=== PATIENT | female | born 1980 | race Caucasian/White ===

== ENCOUNTER 2021-05-29 13:25 | Outpatient (CLI) | payer OTHER, SELFPAY ==
--- NOTE | 2021-05-29 14:24 | ECG_ITS ---
Measurements Intervals Banning Rate: 65 P: 55 TN: 155 QRS: 66 QRSD: 80 T: 44 QT: 375 QTc: 390 Interpretive Statements SINUS RHYTHM BASELINE ARTIFACT NORMAL ECG NO PREVIOUS ECG AVAILABLE FOR COMPARISON Electronically Signed On 05-29-2021 17:31:18 CDT by Levy Hernandez M.D.
[2021-05-29 14:57] LABS: Anion Gap 3 mmol/L (8-16); Blood Urea Nitrogen 12 mg/dL (7-17); Calcium 9.1 mg/dL (8.4-10.2); Carbon Dioxide 28 mmol/L (22-30); Chloride 101 mmol/L (98-107); Estimated Glomerular Filt Rate > 60; Glucose 97 mg/dL (65-110); Potassium 4.6 mmol/L (3.4-5.0); Sodium 132 mmol/L (137-145)
== END 2021-05-29 13:26 | disposition home or self-care (01) ==
PROVIDERS: Anesthesiology; PCP Family Medicine Sports Medicine; Visit Provider Obstetrics & Gynecology
DX: Z01.818 Encounter for other preprocedural examination (principal); I10 Essential (primary) hypertension
CPT/HCPCS: 36415; 80048; 93005

== ENCOUNTER 2021-06-04 01:54 | Day surgery (SDC) | payer OTHER, SELFPAY ==
--- NOTE | 2021-05-26 15:09 | PC.NURSE ---
Report to the Outpatient Waiting Room, entrance under the green pavilion located off [facility], at time _0700_ on date __06/04/21 . SURGERY Time: __0900 . IF YOUR SURGERY TIME IS ADJUSTED WE WILL CALL YOU ON TUE. 06/03/21 - You and your visitor will be asked a series of questions to screen for COVID 19 for your protection. - A mask is required within the hospital. Preoperative COVID Testing Requirements: YOU ARE FULLY VACCINATED AND DO NOT REQUIRE TESTING No COVID Test needed if: (proof is required; if not received patient will have Rapid Test prior to entry) - Patient has received COVID Vaccine at least 14 days prior to procedure date or - Patient has positive COVID test result within last 90 days of surgery date. COVID Test needed if above criteria is not met If not COVID vaccinated a COVID test must be conducted within 72 hours of surgery and patient is asked to isolate self from time of testing until procedure. You will go to the [facility] Testing Site for your COVID testing. The [facility] site is located at the corner of [address] [facility]. You will only be called if COVID results are positive and your surgeon may reschedule your elective surgery date. Patients may have clear liquids (water, carbonated beverages, clear teas, apple juice) until 3 hours prior to surgery with a maximum of 20 ounces. - No food from midnight until time of surgery. YOU MAY HAVE CLEAR LIQUIDS UNTIL 0600 ON 06/04/21; THE MORNING OF YOUR SURGERY - Infants may have breast milk until 4 hours before surgery, formula 6 hours prior to surgery. - Children will be allowed to drink immediately following surgery. If applicable, please bring a bottle or sippy cup to assist with drinking. Juice, water, soda, and popsicles are readily available. For infants on formula, please bring formula the day of surgery. Pacifiers are allowed. Take the following medications with a SIP of water the morning of surgery: __METOPROLOL Medications to discontinue per physician N/A Date to take last dose N/A Please no make-up, nail uzbek, hairspray, perfume, deodorant, or body powder the day of surgery. No jewelry (including any body piercings) or valuables the day of surgery, leave them at home. Please take a shower or bath the night before, or the morning of, surgery with an antibacterial soap. Wear comfortable, loose fitting clothing. Children are encouraged to wear pajamas. - Jewelry must be removed prior to entering the operating room. Rings and piercings that are not removed may be cut off. - The hospital will not accept responsibility for valuables. - Please leave all valuables, including medications, at home the day of surgery. If you are going home after surgery, a licensed farm truck driver must drive you home. - NO public transportation without another adult. - We recommend that an adult stay with you for 24 hours following discharge. - We also recommend that you do not drive, make important decision, drink alcoholic beverages, or take any drugs that were not prescribed by your health care provider for at least 24 hours after your discharge time. For Pediatric surgeries, we recommend two adults accompany the child home (only one inside the building at this time). One visitor will be allowed to accompany the patient into the hospital. Patients visitor will be instructed to remain with patient at all times or leave the building. We will allow the visitor to come back to the postoperative area when patient is ready. Follow any additional instructions given to you from your surgeon. Telephone instructions given to IMELDA and asked if any additional questions and then verbalized understanding. Patient advised to call surgeon office or pre surgery nurse liaison [phone] if any additional questions.
--- NOTE | 2021-06-03 14:04 | PM.IMHP ---
H&P: HPI History of Present Illness Date/Time: 06/03/21 14:04 41-year-old 0 patient presents with menstrual cycles lasting 4-5 days to 3 days very heavy clotting cramping we have tried hormonal therapy in the past which has not helped her bleeding and she had side effects from the control. Ultrasound performed which showed no abnormalities. Multiple options were discussed and will be proceeding with endometrial ablation. Also desires permanent sterilization performed by bilateral salpingectomy. We have discussed permanence failure rate increased risk of ectopic and regret. Patient has good understanding and strongly desires to proceed Chief Complaint: menometrorrhagia Review of Systems Review of Systems: All systems reviewed & are unremarkable except as noted in HPI and below PMFSH Past Medical History Medical History History of hypertension Surgical History Surgical History H/O LEEP (12/29/10) LEEP - LGSIL SANTOS 1 History of gynecological procedure (11/26/10) COLP/BX - SQUAMOUS ATYPIA - SUGG. KOILOCYTOTIC ATYPIA History of tonsillectomy Family History Family History Father Hypertension Diabetes mellitus Mother Hypertension H/O ovarian cancer Grandparent H/O ovarian cancer maternal grandmother Cervical cancer maternal grandmother Other Breast cancer paternal aunt Social History Social History Smoking packs per day: 1 Smoking cigarettes per day: 20.0 Years smoked: 15 Smoking pack-years: 15.00 Smoking status: Former smoker Tobacco type: cigarettes Second hand tobacco smoke exposure: No Smoking end date: 04/27/15 Alcohol intake: current Drinks per week: 3 Substance use: never Substance use type: does not use Last use: 2014 Additional living arrangements comments: spouse Additional occupation/education comments: clean salon Gender identity (if verbalized by the patient): Female Sexual Orientation (if Verbalized by the Patient): Straight or Heterosexual Spiritual care concerns: No Meds Home Medications and Allergies Home Medications Medication Instructions Recorded Confirmed Type hydrochlorothiazide 12.5 mg capsule 12.5 mg PO DAILY 04/28/21 05/26/21 History metoprolol succinate 50 mg 50 mg PO BID 04/28/21 05/26/21 History tablet,extended release 24 hr Allergies Allergy/AdvReac Type Severity Reaction Status Date / Time Penicillins Allergy Unknown Hives / Verified 04/28/21 09:40 Red Face Exam Const: General: cooperative, healthy appearing and comfortable Resp: Effort & Inspection: normal respiratory effort Auscultation: clear to auscultation bilaterally Cardio: Rate: regular rate Rhythm: regular rhythm GI: Auscultation: normal bowel sounds : External Female Exam: normal external appearance Speculum Exam - Vagina: normal appearance of the vagina Speculum Exam - Cervix: normal appearance of the cervix Bimanual exam- vagina & uterus: normal bimanual exam Bimanual Exam- Adnexa, other: normal adnexae Assessment and Plan Assessment and plan (1) Menometrorrhagia: Code(s): N92.1 - Excessive and frequent menstruation with irregular cycle Status: Acute Assessment and Plan: hysteroscopy with D&C and endometrial ablation (2) Encounter for female sterilization procedure: Code(s): Z30.2 - Encounter for sterilization Status: Acute Assessment and Plan: laparoscopic bilateral salpingectomy
[2021-06-04] VITALS (10 sets, daily range): BP systolic 102–155; BP diastolic 69–91; PULSE 63–76; RESP 12–16; TEMP 36.4–36.8; O2SAT 97–100; BMI 20.8
--- NOTE | 2021-06-04 07:21 | WPDHPUPDATE1 ---
History and Physical Update Update Date/Time: 06/04/21 07:21 History and Physical has been reviewed, including an updated exam of the patient. There are NO changes in the patient's condition. Risks, benefits, and alternatives have been discussed and questions answered. Patient agrees to proceed with procedure.
--- NOTE | 2021-06-04 07:41 | WPDANESEPPF ---
Anes - Initial Pre Proc Eval Procedure: Operation Date: 06/04/21 09:00 Proposed Procedures p Hysteroscopy with Myosure, Flavia Endometrial Ablation, Laparoscopic Bilateral Salpingectomy - Maxim Woodruff MD Date/Time: 06/04/21 07:41 Surgeon: Maxim Woodruff MD Pre Op Diagnosis: Menometrorrhagia, Desire Steril Patient Data Age: 41 Gender: F Height: 1.63 m Weight: 55 kg Last Vital Signs Temp 36.8 C 06/04/21 07:33 Pulse 72 06/04/21 07:33 Resp 16 06/04/21 07:33 BP 155/91 H 06/04/21 07:33 Pulse Ox 100 06/04/21 07:33 Allergies Allergy/AdvReac Type Severity Reaction Status Date / Time Penicillins Allergy Unknown Hives / Verified 06/04/21 07:38 Red Face Home Medications Medication Instructions Recorded Confirmed Type hydrochlorothiazide 12.5 mg capsule 12.5 mg PO DAILY 04/28/21 06/04/21 History metoprolol succinate 50 mg 50 mg PO BID 04/28/21 06/04/21 History tablet,extended release 24 hr Patient hx anesthesia problems: none Family hx anesthesia problems: none Results Review: All pre-operative results and documents have been reviewed as part of the pre-operative evaluation. [facility] Past Medical History Medical History History of hypertension Surgical History Surgical History H/O LEEP (12/29/10) LEEP - LGSIL SANTOS 1 History of gynecological procedure (11/26/10) COLP/BX - SQUAMOUS ATYPIA - SUGG. KOILOCYTOTIC ATYPIA History of tonsillectomy Family History Family History Father Hypertension Diabetes mellitus Mother Hypertension H/O ovarian cancer Grandparent H/O ovarian cancer maternal grandmother Cervical cancer maternal grandmother Other Breast cancer paternal aunt Social History Social History Smoking packs per day: 1 Smoking cigarettes per day: 20.0 Years smoked: 15 Smoking pack-years: 15.00 Smoking status: Former smoker Tobacco type: cigarettes Second hand tobacco smoke exposure: No Smoking end date: 04/27/15 Alcohol intake: current Drinks per week: 3 Substance use: never Substance use type: does not use Last use: 2014 Living arrangements: with family Additional living arrangements comments: spouse Additional occupation/education comments: clean salon Gender identity (if verbalized by the patient): Female Sexual Orientation (if Verbalized by the Patient): Straight or Heterosexual Spiritual care concerns: No Anes - Eval Final PreProcedure Day of Procedure 06/04/21 07:41 Patient weight: normal Heart: regular rate and rhythm Lungs: clear to auscultation Airway: Mallampati scale class II Neurological: alert and oriented Last oral intake: >/= 8 hours ASA classification: II Emergent: no Anesthetic plan: proceed Anesthesia type and monitoring: general ETT and standard monitoring Results Review: All pre-operative results and documents have been reviewed as part of the pre-operative evaluation. Informed Consent: The patient's anesthetic plan and its attendant risks and benefits were discussed with the patient/family/POA. Questions were solicited and answers provided to the satisfaction of the patient/family/POA.
[2021-06-04] MEDS: LACTATED RINGERS 1,000 ML 30 ML IV CONT ×2 (07:49→09:24)
[2021-06-04] MEDS: ACETAMINOPHEN 500 MG TABLET 1000 MG PO (07:52)
[2021-06-04] MEDS: KETOROLAC 15 MG/ML VIAL (*BKC) IV PUSH (07:53)
[2021-06-04] MEDS: MIDAZOLAM HCL (*CRX) 2 MG/2 ML VIAL IV PUSH (07:54)
[2021-06-04] MEDS: SCOPOLAMINE 1.5 MG PATCH TRANSDERM (07:59)
--- NOTE | 2021-06-04 08:12 | SUR.PREOP ---
0750; DR BEVERLY SPEAKING TO PT. PT ANXIOUS. REQUESTING VERSED FOR PT. PT REQUESTING SCOPE PATCH.
[2021-06-04] MEDS: ceFAZolin 2 GM/D5W 50 ML 2 GM/50 ML BAG IVPB (08:34)
--- NOTE | 2021-06-04 09:18 | SUR.OPER ---
500ml ns in, 400ml ns out. aware
--- NOTE | 2021-06-04 09:19 | PM.OP ---
Procedure Note - Brief Procedure Note - Brief Date of procedure: 06/04/21 Pre-op diagnosis: Menometrorrhagia, Desire Steril Post-op diagnosis: Same Procedure performed: 1. Hysteroscopy 2. Uterine curettings 3. Endometrial ablation 4. Laparoscopic bilateral salpingectomy Description of procedure: Patient prepped use usual manner for this procedure. Cervical instruments were placed for uterine mobility during the case. Umbilical and lower quadrant incisions were made and placed under direct visualization. Using the Harmonic scalpel mesosalpinx bilaterally was cauterized and cut and the tubes were removed without difficulty through these trocars. There was no bleeding. Gas was allowed to escape incisions approximated using 4-0 Monocryl and skin glue. Attention was as placed to the vagina and the cervix was dilated to allow the hysteroscope to place which revealed thickened endometrial cavity. Curettings were obtained endometrial ablation instrument was placed and cavity assessment was performed. At the end of the procedure hysteroscopic exam revealed good destruction throughout. At this point seizure was considered terminated the patient was sent to recovery room in stable condition. Anesthesia: GETA Surgeon: Maxim Woodruff MD Estimated blood loss (mL): 10 Drains: No Packing: No Pathology: Yes Complications: No immediate complications Condition: Stable Disposition: PACU Findings: Laparoscopic evaluation showed no significant laparoscopic abnormalities and hysteroscopic evaluation revealed thickened tissue as noted above.
--- NOTE | 2021-06-04 10:39 | WPDHPUPDATE1 ---
History and Physical Update Update Date/Time: 06/04/21 10:39 In the postop area patient is found to have significant hematoma underneath the right lower quadrant incision. Does not appear to be expanding but is 7 8cm and tender. I have discussed with patient and will return to the operating room and irrigated this hematoma and we close the incision. A. Postoperative hematoma P. Proceed with re-exploration of incision and wound. Irrigation of hematoma. And hemostasis of any bleeding. History and Physical has been reviewed, including an updated exam of the patient. There are NO changes in the patient's condition. Risks, benefits, and alternatives have been discussed and questions answered. Patient agrees to proceed with procedure.
--- NOTE | 2021-06-04 10:41 | WPDHPUPDATE1 ---
History and Physical Update Update Date/Time: 06/04/21 10:41 See update placed on previous chart. Will returned OR for evacuation and hemostasis of postoperative hematoma. History and Physical has been reviewed, including an updated exam of the patient. There are NO changes in the patient's condition. Risks, benefits, and alternatives have been discussed and questions answered. Patient agrees to proceed with procedure.
--- NOTE | 2021-06-04 11:23 | PM.OP ---
Procedure Note - Brief Procedure Note - Brief Date of procedure: 06/04/21 Pre-op diagnosis: Postoperative hematoma Post-op diagnosis: Same Procedure performed: 1. Exploration of wound 2. Evacuation of hematoma 3. Hemostasis of bleeding Description of procedure: Patient was prepped and draped in usual manner for this procedure. Both lower trocar sites were opened with approximate 50cc of bright red blood and clot removed from either subcutaneous space. Irrigation was undertaken small oozing was noted in the subcutaneous vascular. This was rendered hemostatic with bipolar cautery as well as pressure. This was monitored for [id number] with no evidence of bleeding and no enlargement of any type of hematoma or subcutaneous mass. Having been satisfied that all bleeding had stopped 0 plain was used to close the subcutaneous ?? space and then a 4-0 Monocryl in a subcuticular layer to approximate the skin edges. This was done bilaterally. Patient again then monitored for [id number] with no evidence of any mass or accumulation of fluid beneath either incision. At this point the procedure was considered terminated and the patient was again sent to the recovery room. Findings and likely postoperative course and postoperative management of her wounds was discussed with her . We will place ice and pressure while she was here and have her continue with this for the next 24hours. He will call if there are any issues. Anesthesia: MAC Surgeon: Maxim Woodruff MD Estimated blood loss (mL): 100 Drains: No Packing: No Pathology: None sent Complications: No immediate complications Condition: Stable Disposition: PACU Findings: Approximate 50cc bilaterally of old blood and clot noted.
[2021-06-04] MEDS: oxyCODONE HCL (*CRX) 5 MG TAB IR PO (12:17)
--- NOTE | 2021-06-04 15:30 | SUR.PHASEII ---
RECIEVED PT FROM PACU AND GOT HER UP TO CHAIR. ONCE IN CHAIR, ABDOMEN WAS INSPECTED. I NOTICED RT LOWER ABDOMEN ON PALPATION HAD A BULGE AND WAS FIRM. NOTIFIED DR BEVERLY IMMEDIATELY AND HE CAME AND SAW PT. PT WAS SCHEDUALLED FOR AN I&D AND WENT TO OR WITHIN THE HALF HOUR.
--- NOTE | 2021-06-04 16:02 | SUR.PHASEII ---
PT DISCHARGED HOME WITH IN [facility].
--- NOTE | 2021-06-05 07:36 | SUR.OPER ---
forgot to alverto close time and out of room time.
== END 2021-06-04 12:40 | disposition home or self-care (01) ==
PROVIDERS: PCP Family Medicine Sports Medicine; Visit Provider Obstetrics & Gynecology
PROC: 0UDB8ZZ Extraction of Endometrium, Via Natural or Artificial Opening Endoscopic (ICD-10-PCS; CPT 58558; principal; 2021-06-04 09:00)
PROC: (CPT 58605; principal; 2021-06-04 10:30)
DX: Z30.2 Encounter for sterilization (principal); N85.8 Other specified noninflammatory disorders of uterus; N83.8 Other noninflammatory disorders of ovary, fallopian tube and broad ligament; N92.1 Excessive and frequent menstruation with irregular cycle; L76.32 Postprocedural hematoma of skin and subcutaneous tissue following other procedure; I10 Essential (primary) hypertension; Z87.891 Personal history of nicotine dependence; Y83.8 Other surgical procedures as the cause of abnormal reaction of the patient, or of later complication, without mention of misadventure at the time of the procedure
CPT/HCPCS: 58563; 58661; 10140; 36415; 80048; 88302; 88305; 93005; A9270; J0690; J1100; J1885; J2250; J2405; J2704; J2710; J3010; J7030; J7120

== ENCOUNTER 2022-01-23 12:54 | Emergency (ER) | payer OTHER, SELFPAY ==
--- NOTE | ~2022-01-23 | CT_ITS ---
EXAMINATION: CT abdomen pelvis w con DATE: 01/23/2022 14:06 INDICATION: Left flank pain and fever TECHNIQUE: Computed tomography (CT) of the abdomen and pelvis was performed with 100 CC Omnipaque 350 intravenous contrast. Automated exposure control and iterative reconstruction technique were employe d. Exam dose: 202.44 mGy-cm total exam DLP. COMPARISON: None. FINDINGS: Left lower lobe calcified pulmonary granuloma. The lung bases are clear of infiltrate or co nsolidation. Normal heart size. No pericardial or pleural effusion. The liver, gallbladder, bile ducts, spleen, pancreas, pancreatic duct, and adrenal glands are unremar kable. The right kidney appears normal. There is left nephromegaly with multiple areas of decreased contrast enhancement of the left renal pa renchyma, most prominent at the lower pole. The findings are most suggestive of left pyelonephritis. No urinary tract calculus or hydroureteronephrosis is detected. There is moderate diffuse thickening and urinary bladder wall. Cystitis is not excluded. Mild atherosclerotic calcification but normal caliber of the abdominal aorta and iliac arteries. No i ntraperitoneal or retroperitoneal or pelvic mass lesion or adenopathy or ascites is noted. There are small bowel and colon air-fluid levels without obstruction or bowel wall thickening, likely due to adynamic ileus or enterocolitis. No intraperitoneal free air. Small fat-containing umbilical hernia. Included skeletal structures are unremarkable. IMPRESSION: Left nephromegaly with patchy contrast enhancement, suggesting left pyelonephritis Moderate diffuse thickening of the urinary bladder wall, which may be due to cystitis Small and large bowel air-fluid levels, possibly due to adynamic ileus or enterocolitis Reviewed, dictated and finalized at [facility]. Reviewed, dictated and finalized at location [facility]. [facility] GENERAL IMPRESSION: Left nephromegaly with patchy contrast enhancement, suggesting lef t pyelonephritis Moderate diffuse thickening of the urinary bladder wall, which may be due to cy stitis Small and large bowel air-fluid levels, possibly due to adynamic ileus or enter ocolitis
[2022-01-23 12:59] VITALS: BP 141/88; PULSE 88; RESP 18; TEMP 36.7; O2SAT 100
--- NOTE | 2022-01-23 13:21 | ED.FEVER ---
HPI - Fever General Chief Complaint: Fever Stated Complaint: fever Time Seen by Provider: 01/23/22 13:06 History of Present Illness HPI Narrative: Patient is a 42-year-old female here for evaluation of fever and left flank pain. She states that over the past several days she has had intermittent spiking fevers up to 101 degrees. Fevers have improved but she has been taking Tylenol and ibuprofen [id number]. She also reports a pain in her left flank and also in her lower abdomen, which she states is at her endometrial ablation surgical site. She was seen in urgent care yesterday and was diagnosed with a kidney infection, was prescribed antibiotics but her fevers have persisted. Related Data Home Medications Medication Instructions Recorded Confirmed hydrochlorothiazide 12.5 mg capsule 12.5 mg PO DAILY 04/28/21 06/22/21 metoprolol succinate 50 mg 50 mg PO BID 04/28/21 06/22/21 tablet,extended release 24 hr Allergies Allergy/AdvReac Type Severity Reaction Status Date / Time Penicillins Allergy Unknown Hives / Verified 07/08/21 10:19 Red Face PMFSH Past Medical History Medical History History of hypertension Surgical History Surgical History H/O LEEP (12/29/10) LEEP - LGSIL SANTOS 1 History of gynecological procedure (11/26/10) COLP/BX - SQUAMOUS ATYPIA - SUGG. KOILOCYTOTIC ATYPIA History of gynecological procedure (06/04/21) hscope D&C/ Endometrial ablation/ bilateral Lscope salpingectomy History of tonsillectomy Family History Family History Father Hypertension Diabetes mellitus Mother Hypertension H/O ovarian cancer Grandparent H/O ovarian cancer maternal grandmother Cervical cancer maternal grandmother Other Breast cancer paternal aunt Social History Social History Smoking packs per day: 1 Smoking cigarettes per day: 20.0 Years smoked: 15 Smoking pack-years: 15.00 Smoking status: Former smoker Tobacco type: cigarettes Second hand tobacco smoke exposure: No Smoking end date: 04/27/15 Alcohol intake: current Drinks per week: 3 Substance use: never Substance use type: does not use Last use: 2014 Additional living arrangements comments: spouse Additional occupation/education comments: clean salon Gender identity (if verbalized by the patient): Female Sexual Orientation (if Verbalized by the Patient): Straight or Heterosexual Spiritual care concerns: No Course Vital Signs Vital signs: Vital Signs Temperature 98.1 F 01/23/22 12:59 Pulse Rate 88 01/23/22 12:59 Respiratory Rate 18 01/23/22 12:59 Blood Pressure 141/88 H 01/23/22 12:59 Pulse Oximetry 100 01/23/22 12:59 Oxygen Delivery Room Air 01/23/22 12:59 Temperature 98.1 F 01/23/22 12:59 Pulse Rate 88 01/23/22 12:59 Respiratory Rate 18 01/23/22 12:59 Blood Pressure 141/88 H 01/23/22 12:59 Pulse Oximetry 100 01/23/22 12:59 Oxygen Delivery Room Air 01/23/22 12:59 MDM - Fever MDM Narrative Medical decision making narrative: 42-year-old female here for evaluation of fevers and flank pain over the past several days, was seen at an urgent care and was given antibiotics for UTI without improvement of her symptoms. Patient is nontoxic-appearing and has normal vital signs here, afebrile. She has slight tenderness over her left flank. Urine with possible signs of infection. CT scan shows evidence of pyelonephritis and cystitis. Her white count is 10.3. She was given fluids and a dose of ceftriaxone in the ER. She was given Bactrim at the urgent care which I encouraged her to continue. She has no signs of urosepsis at this time and is stable for discharge. She was given return precautions and she voiced understandin
[2022-01-23 13:28] LABS: Basophils Absolute Auto 0.1 K/mm3 (0.0-0.1); Basophils Percent Auto 0.5 % (0.2-1.2); Hematocrit 36.9 % (37.0-47.0); Hemoglobin 12.8 g/dL (12.0-15.0); Immature Granulocyte Absolute 0.06 K/mm3 (0.00-0.031); Immature Granulocyte Percent A 0.6 % (0-0.5); Lymphocytes Absolute Auto 0.94 K/mm3 (0.9-3.2); Lymphocytes Percent Auto 9.2 % (18.3-44.2); Mean Corpuscular HGB Conc 34.7 g/dl (32-36); Mean Corpuscular Hemoglobin 33.9 pg (26-34); Mean Corpuscular Volume 97.6 fl (80-100); Mean Platelet Volume 8.9 fl (7.4-10.4); Monocytes Percent Auto 19.9 % (2.6-8.5); Neutrophils Absolute Auto 7.2 K/mm3 (1.3-6.7); Neutrophils Percent Auto 69.8 % (45.5-73.1); Platelet Count Result 256 k/mm3 (150-375); Red Blood Count 3.78 M/mm3 (4.2-5.4); Red Cell Distribution Width 11.7 % (11.5-14.5); White Blood Count 10.3 K/mm3 (4.5-10.0)
[2022-01-23 13:29] LABS: Appearance Urine Slightly Cloudy (Clear); Bilirubin Urine 1+ (Negative); Blood Urine Trace-intact (Negative); Color Urine Yellow (Yellow); Glucose Urine UA Negative (Negative); Ketones Urine 2+ mg/dL (Negative); Leukocyte Esterase Ur Trace LEU/UL (Negative); Nitrate Urine Negative (Negative); Protein Urine Negative (Negative); Urobilinogen Urine 0.2 mg/dL (<2.0)
[2022-01-23 13:35] LABS: Bacteria Urine Trace /hpf; Mucus Urine Rare /lpf; RBC Urine 0-2 /hpf (0-2); Squamous Epithelial Cell Urine Few /hpf (Few)
[2022-01-23 13:36] LABS: Add Urine Microscopic? YES
[2022-01-23 13:39] LABS: Alanine Aminotransferase 15 U/L (6-35); Albumin Level 4.1 g/dL (3.5-5.1); Alkaline Phosphatase 71 U/L (38-126); Anion Gap 11 mmol/L (8-16); Aspartate Amino Transferase 27 U/L (14-36); Bilirubin,Total 0.4 mg/dL (0.2-1.3); Blood Urea Nitrogen 6 mg/dL (7-17); Calcium 8.9 mg/dL (8.4-10.2); Carbon Dioxide 25 mmol/L (22-30); Chloride 96 mmol/L (98-107); Estimated CRCL calculation 78 ml/min; Estimated Glomerular Filt Rate > 60; Glucose 128 mg/dL (65-110); Potassium 3.5 mmol/L (3.4-5.0); Sodium 132 mmol/L (137-145)
[2022-01-23] MEDS: SODIUM CHLORIDE 0.9% IV 1,000 ML 999 ML IV CONT (13:43)
== END 2022-01-23 15:20 | disposition home or self-care (01) ==
PROVIDERS: Emergency Provider Physician Assistant; PCP Family Medicine Sports Medicine
DX: N12 Tubulo-interstitial nephritis, not specified as acute or chronic (principal); I10 Essential (primary) hypertension; Z87.891 Personal history of nicotine dependence
CPT/HCPCS: 36415; 74177; 80053; 81001; 81025; 85025; 87086; 96361; 96365; 99284; J0696; J7030; Q9967

== ENCOUNTER → 2022-07-21 13:37 | Outpatient (CLI) | payer OTHER, SELFPAY ==
--- NOTE | ~2022-07-21 | MM_ITS ---
EXAMINATION: MM screening mike BI w kortney HISTORY: Screening mammogram TECHNIQUE: Craniocaudal and mediolateral oblique 3-D tomosynthesis images were obtained and synthetic 2-D images were generated. CAD analysis was submitted and interpreted. COMPARISON: 07/12/2017 BREAST PARENCHYMAL COMPOSITION: The breasts are extremely dense, which lowers the sensitivity of mamm ography. FINDINGS: No suspicious mass, calcification, or architectural distortion are identified in either darrell ast to suggest malignancy. There has been no suspicious interval change. IMPRESSION: 1. No mammographic evidence of malignancy. 2. Recommend routine screening mammography in one year. BI-RADS Category 1: Negative Reviewed, dictated and finalized at location [facility].
== END ==
PROVIDERS: PCP Obstetrics & Gynecology; Visit Provider Obstetrics & Gynecology
DX: Z12.31 Encounter for screening mammogram for malignant neoplasm of breast (principal)
CPT/HCPCS: 77063; 77067

== ENCOUNTER 2023-08-19 14:42 | Outpatient (CLI) | payer BC, SELFPAY ==
--- NOTE | ~2023-08-19 | MM_ITS ---
EXAMINATION: MM screening mike BI w kortney HISTORY: Screening TECHNIQUE: Craniocaudal and mediolateral oblique 3-D tomosynthesis images were obtained and synthetic 2-D images were generated. CAD analysis was submitted and interpreted. COMPARISON: Comparison to multiple prior studies sequentially, with oldest reviewed study dated 07/12. BREAST PARENCHYMAL COMPOSITION: Dense: The breasts are extremely dense, which lowers the sensitivity of mammography. FINDINGS: There is no evidence of suspicious mass, calcification, or architectural distortion to sugg est malignancy in either breast. There has been no suspicious interval change. IMPRESSION: 1. No mammographic evidence of malignancy. 2. Recommend routine screening mammography in one year. BI-RADS Category 1: Negative Reviewed, dictated and finalized at location B.
== END 2023-08-19 14:43 ==
LOC: MICIMG 14:43
PROVIDERS: PCP Obstetrics & Gynecology; Visit Provider Obstetrics & Gynecology
DX: Z12.31 Encounter for screening mammogram for malignant neoplasm of breast (principal)
CPT/HCPCS: 77063; 77067

== ENCOUNTER 2024-08-07 15:51 | Observation (INO) | payer BC, SELFPAY ==
[2024-08-07] VITALS (12 sets, daily range): BP systolic 133–218; BP diastolic 82–124; PULSE 71–88; RESP 13–21; TEMP 36.6–36.9; O2SAT 100; BMI 20.6
--- NOTE | ~2024-08-07 | MR_ITS ---
EXAMINATION: MR brain/brain stem wo/w con DATE: 08/08/2024 09:06 INDICATION: Severe vertigo, headache and hyponatremia TECHNIQUE: Magnetic resonance imaging (MRI) of the brain and brainstem was performed without and with 11 mL ProHance intravenous contrast. Sequences included sagittal and axial T1-weighted SE, axial dif fusion-weighted FS SE, axial 3D SWAN, axial T2-weighted FLAIR, and axial T2-weighted FSE. Postcontras t axial and coronal T1-weighted SE was obtained. Apparent diffusion coefficient (ADC) maps were creat ed. COMPARISON: Head CT dated 08/07/2024 FINDINGS: There are no areas of restricted diffusion to suggest acute infarction. No intracranial hemorrhage or abnormal intracranial mass lesion. There are no intraparenchymal signal abnormalities seen on the ot her pulse sequences. The ventricles are symmetric and normal in size. There are no abnormal extra-axi al fluid collections. Flow voids are seen in the cerebral arteries on the T2-weighted sequences consi stent with their expected patency. Visualized orbits and soft tissues are unremarkable. There are no areas of abnormal enhancement on the post contrast images. IMPRESSION: 1. Normal brain MR. Reviewed, dictated and finalized at location A. IMPRESSION: 1. Normal brain MR.
--- NOTE | ~2024-08-07 | CT_ITS ---
EXAMINATION: CT brain wo con DATE: 08/07/2024 17:41 INDICATION: Headache TECHNIQUE: Computed tomography (CT) of the head was performed without intravenous contrast. Sagittal and coronal reconstructions were performed. The mA was adjusted according to patient size. Iterative reconstruction technique was employed. The dose-length product was 605.33 mGy-cm. COMPARISON: None FINDINGS: No acute intracranial hemorrhage, acute infarction or abnormal extra axial fluid collection. Ventricl es are normal and symmetric. No mass/mass effect. The orbits, paranasal sinuses and mastoid air cells are normal. IMPRESSION: 1. Normal head CT. Reviewed, dictated and finalized at location A. IMPRESSION: 1. Normal head CT.
[2024-08-07 16:10] LABS: BEDSIDEPREGUCG Negative (Negative)
[2024-08-07 16:16] LABS: Basophils Percent Auto 0.5 % (0.2-1.2); Eosinophils Percent Auto 0.1 % (0-4.4); Hematocrit 39.3 % (37.0-47.0); Hemoglobin 14.1 g/dL (12.0-15.0); Immature Granulocyte Absolute 0.03 K/mm3 (0.00-0.031); Immature Granulocyte Percent A 0.4 % (0-0.5); Lymphocytes Absolute Auto 2.01 K/mm3 (0.9-3.2); Lymphocytes Percent Auto 25.9 % (18.3-44.2); Mean Corpuscular HGB Conc 35.9 g/dl (32-36); Mean Corpuscular Hemoglobin 33.2 pg (26-34); Mean Corpuscular Volume 92.5 fl (80-100); Mean Platelet Volume 9.2 fl (7.4-10.4); Monocytes Absolute Auto 1.3 K/mm3 (0.1-0.6); Monocytes Percent Auto 16.7 % (2.6-8.5); Neutrophils Absolute Auto 4.4 K/mm3 (1.3-6.7); Neutrophils Percent Auto 56.4 % (45.5-73.1); Platelet Count Result 267 k/mm3 (150-375); Red Blood Count 4.25 M/mm3 (4.2-5.4); Red Cell Distribution Width 11.2 % (11.5-14.5); White Blood Count 7.8 K/mm3 (4.5-10.0)
[2024-08-07 16:21] LABS: Add Urine Microscopic? YES; Appearance Urine Clear (Clear); Bacteria Urine Rare /hpf; Bilirubin Urine Negative (Negative); Blood Urine Negative (Negative); Color Urine Yellow (Yellow); Glucose Urine UA Negative (Negative); Ketones Urine Negative (Negative); Leukocyte Esterase Ur 1+ LEU/UL (Negative); Nitrate Urine Negative (Negative); Non Pathogenic Casts 0-2; Protein Urine Negative (Negative); RBC Urine 0-2 /hpf (0-2); Specific Grav Ur 1.005 (1.001-1.035); Squamous Epithelial Cell Urine None Seen /hpf (Few); Urobilinogen Urine 0.2 mg/dL (<2.0)
[2024-08-07 16:31] LABS: Alanine Aminotransferase 22 U/L (6-35); Alkaline Phosphatase 87 U/L (38-126); Anion Gap 11 mmol/L (4-12); Aspartate Amino Transferase 41 U/L (14-36); Bilirubin,Total 0.8 mg/dL (0.2-1.3); Blood Urea Nitrogen 8 mg/dL (7-17); Calcium 9.7 mg/dL (8.4-10.2); Carbon Dioxide 23 mmol/L (22-30); Chloride 87 mmol/L (98-107); Estimated CRCL calculation 88 ml/min; Estimated Glomerular Filt Rate > 60; Glucose 103 mg/dL (65-110); Lipase 150 U/L (23-300); Sodium 121 mmol/L (137-145); Total Protein 8.9 g/dL (6.3-8.2)
[2024-08-07] MEDS: METOCLOPRAMIDE HCL INJ 10 MG/2 ML VIAL IV PUSH (17:24)
[2024-08-07] MEDS: diphenhydrAMINE HCl INJ 50 MG/ML VIAL 25 MG IV PUSH (17:24)
[2024-08-07] MEDS: SODIUM CHLORIDE 0.9% IV 1,000 ML 125 ML IV CONT (17:24)
--- NOTE | 2024-08-07 17:27 | ED.GENADULT ---
HPI - General Adult General Chief complaint: Nausea/Vomiting/Diarrhea Stated complaint: motion sickness Time Seen by Provider: 08/07/24 15:54 History of Present Illness HPI narrative: Eloina Dumont is a 44 y/o female who presents with a long hx of severe motion sickness, and hypertension. She states that her severe motion sickness has significantly been much worse over past 5 years that she has to use scopolamine patch and she travels. She states that last time that she was on vacation she used a full patch and when she took it off she had 5 days or severe nausea vomiting dizziness. Sinus them when they went on their vacation she just use half a patch and 1 day into her vacation with half a patch on she developed severe motion sickness and that being on the bed with severe nausea vomiting and diarrhea and feeling dizzy, this episode was 4 days ago on Tuesday night into Tuesday. She states Tuesday she felt a little bit better and they flew home. Yesterday she said that she felt somewhat better and today she could feel the symptoms coming back on again and she was trying to power through it then she called her PCP who had her check her blood pressure and it was elevated and they had her take a Dramamine at home at 2:00 p.m. and said if she continues to feel dizzy nauseous then she will need to go to the emergency department. She states she has been trying to take her b/p meds over the past several days through this but not sure what she has actually kept down. She denies numbness / no focal weakness Related Data Home Medications ?Medication ?Instructions ?Recorded ?Confirmed ?Last Taken ?Type hydrochlorothiazide 12.5 mg capsule 12.5 mg PO DAILY 04/28/21 07/09/24 06/03/21 History metoprolol succinate 50 mg 50 mg PO BID 04/28/21 07/09/24 06/04/21 05:15 History tablet,extended release 24 hr olmesartan 5 mg tablet 5 mg PO DAILY 07/09/24 07/09/24 Unknown History Allergies Allergy/AdvReac Type Severity Reaction Status Date / Time Penicillins Allergy Mild Hives / Verified 07/09/24 13:26 Red Face Review of Systems Review of Systems: All systems reviewed & are unremarkable except as noted in HPI and below PMFSH Past Medical History Medical History Screening mammogram, encounter for History of hypertension Surgical History Surgical History (Updated 07/09/24 @ 13:28 by CIARAN Olmos) History of right hip replacement (09/30/23) History of gynecological procedure (06/04/21) hscope D&C/ Endometrial ablation/ bilateral Lscope salpingectomy History of gynecological procedure (11/26/10) COLP/BX - SQUAMOUS ATYPIA - SUGG. KOILOCYTOTIC ATYPIA H/O LEEP (12/29/10) LEEP - LGSIL SANTOS 1 History of tonsillectomy Family History Family History Father Hypertension Diabetes mellitus Mother Hypertension H/O ovarian cancer Grandparent H/O ovarian cancer maternal grandmother Cervical cancer maternal grandmother Other Breast cancer paternal aunt Social History Social History Smoking packs per day: 1 Smoking cigarettes per day: 20.0 Years smoked: 15 Smoking pack-years: 15.00 Smoking status: Former smoker Tobacco type: cigarettes Second hand tobacco smoke exposure: No Smoking end date: 04/27/15 Alcohol intake: current Drinks per week: 3 Substance use: never Substance use type: does not use Last use: 2015 Do You Feel Safe in your Home?: Yes Lack of Transportation: No Lack of Food: Never True Current Housing: I Have Housing Concerned About Future Housing: No Difficulty Paying Gas/Electric Bills: No Difficulty Paying for Meds: No Currently Unemployed: No Education: High School Diploma/GED Difficulty w/ Childcare or Family Care: No Living arrangements: other Additional living arrangements comments: spouse Occupation/Education: occupation Additional occupation/education comments: self employed Gender identity (if verbalized by the patient): Female Sexual Orientation (if Verbalized by the Patient): Straight or Heterosexual Spiritual care concerns: No Exam Narrative: GENERAL: well-nourished HEAD: Normocephalic, atraumatic. EYES: PERRLA and EOMI. ENT: Nares clear, no rhinorrhea or epistaxis. Mucous membranes moist. Oropharynx without tonsillar hypertrophy exudate or other lesions. NECK: Supple. No adenopathy or masses. No carotid bruits or JVD CHEST: Clear to auscultation. No respiratory distress. No wheezes rales or rhonchi HEART: Regular rate and rhythm. No murmur heard. Normal peripheral pulses. ABDOMEN: Soft, nontender, nondistended, normal active bowel sounds. EXTREMITIES: Normal range of motion. No edema. SKIN: Warm, dry, no rash. NEURO: No focal deficits. Alert and oriented x3. PSYCH: Normal mood and affect. Course Vital Signs Vital signs: Vital Signs Temperature 36.6 C 08/07/24 15:58 Pulse Rate 86 08/07/24 15:58 Respiratory Rate 13 08/07/24 15:58 Blood Pressure 205/124 H 08/07/24 15:58 Pulse Oximetry 100 08/07/24 15:58 Oxygen Delivery Room Air 08/07/24 15:58 Temperature 36.6 C 08/07/24 15:58 Pulse Rate 81 08/07/24 16:15 Respiratory Rate 13 08/07/24 15:58 Blood Pressure 216/124 H 08/07/24 16:15 Pulse Oximetry 100 08/07/24 15:58 Oxygen Delivery Room Air 08/07/24 15:58 Medical Decision Making MDM Narrative Medical decision making narrative: 44-year-old female who presents with his ongoing motion sickness illness were she has been using the scopolamine patches. She states this most recent episode of her motion sickness episode started 4 days ago. She states she has been able to keep fluids and food down over the last couple days but she continued to have feeling as if for severe vertigo episode was going to come on so she called her primary doctor her blood pressure was elevated they told her to take a trauma being and then if it did help to go to the emergency department. On exam she is alert and oriented x4 pupils equal reactive EOM intact no nystagmus noted no focal deficits on exam she states based on severity of how her motion sickness can be she has about a 4/10 and states she has a mild headache with that. Concern for dehydration, vertigo, CBC-no leukocytosis, hemodynamically stable CMP-sodium 121, chloride 87, creatinine 0.60, AST 41 UA-positive for leukocytes home, white blood cells 6-10 Urine preg-negative TSH-pending Head CT-normal head CT Based on the lab results started normal saline at 125 an hour treating her with Reglan and Benadryl for her continued symptoms Patient re-evaluated and states that she is feeling a lot better her blood pressure has improved she still is slightly feeling like she will have an episode of the motion sickness but overall feeling better. Updated patient for plan to admit for her hyponatremia, she is agreeable to this plan Called Hospitalist Sánchez who accepts pt for observation admission and asks for urine sodium random Medical Records Medical records reviewed: Yes I reviewed the external patient's medical records. Vital Signs Vital Signs: Vital Signs Temperature 36.6 C 08/07/24 15:58 Pulse Rate 86 08/07/24 15:58 Respiratory Rate 13 08/07/24 15:58 Blood Pressure 205/124 H 08/07/24 15:58 Pulse Oximetry 100 08/07/24 15:58 Oxygen Delivery Room Air 08/07/24 15:58 Temperature 36.6 C 08/07/24 15:58 Pulse Rate 81 08/07/24 16:15 Respiratory Rate 13 08/07/24 15:58 Blood Pressure 216/124 H 08/07/24 16:15 Pulse Oximetry 100 08/07/24 15:58 Oxygen Delivery Room Air 08/07/24 15:58 vitals reviewed by me Lab Data Lab results reviewed: Yes I reviewed the patient's lab results. 08/07/24 16:05 08/07/24 16:05 Labs: Lab Results 08/07/24 08/07/24 Range/Units 16:05 16:08 WBC 7.8 (4.5-10.0) K/mm3 RBC 4.25 (4.2-5.4) M/mm3 Hgb 14.1 (12.0-15.0) g/dL Hct 39.3 (37.0-47.0) % MCV 92.5 (80-100) fl MCH 33.2 (26-34) pg MCHC 35.9 (32-36) g/dl RDW 11.2 L (11.5-14.5) % Plt Count 267 (150-375) k/mm3 MPV 9.2 (7.4-10.4) fl Immature Gran % (Auto) 0.4 (0-0.5) % Neut % (Auto) 56.4 (45.5-73.1) % Lymph % (Auto) 25.9 (18.3-44.2) % [place] % (Auto) 16.7 H (2.6-8.5) % Eos % (Auto) 0.1 (0-4.4) % Baso % (Auto) 0.5 (0.2-1.2) % Lymph # (Auto) 2.01 (0.9-3.2) K/mm3 [place] # (Auto) 1.3 H (0.1-0.6) K/mm3 Eos # (Auto) 0.0 (0-0.3) K/mm3 Baso # (Auto) 0.0 (0.0-0.1) K/mm3 Abs Immat Gran (auto) 0.03 (0.00-0.031) K/mm3 Absolute Neuts (auto) 4.4 (1.3-6.7) K/mm3 Absolute Nucleated RBC 0.000 (0.0-0.012) K/mm3 Nucleated RBC % 0.0 (0.0-0.2) % Sodium 121 L (137-145) mmol/L Potassium 4.0 (3.4-5.0) mmol/L Chloride 87 L (98-107) mmol/L Carbon Dioxide 23 (22-30) mmol/L Anion Gap 11 (4-12) mmol/L BUN 8 (7-17) mg/dL Creatinine 0.60 L (0.7-1.0) mg/dL Estim Creat Clear Calc 88 ml/min Estimated GFR > 60 (59 - ) Glucose 103 (65-110) mg/dL Calcium 9.7 (8.4-10.2) mg/dL Total Bilirubin 0.8 (0.2-1.3) mg/dL AST 41 H (14-36) U/L ALT 22 (6-35) U/L Alkaline Phosphatase 87 (38-126) U/L Total Protein 8.9 H (6.3-8.2) g/dL Albumin 5.0 (3.5-5.1) g/dL Lipase 150 (23-300) U/L Urine Color Yellow (Yellow) Urine Appearance Clear (Clear) Urine pH 7.0 (5.0-9.0) Ur Specific [place] 1.005 (1.001-1.035) Urine Protein Negative (Negative) mg/dL Urine Glucose (UA) Negative (Negative) mg/dL Urine Ketones Negative (Negative) mg/dL Ur Blood (Man) Negative (Negative) Urine Nitrate Negative (Negative) Urine Bilirubin Negative (Negative) Urine Urobilinogen 0.2 (<2.0) mg/dL Leukocyte Esterase Rfl 1+ H (Negative) SILVINO/UL Urine RBC 0-2 (0-2) /hpf Urine WBC 6-10 H (0-3) /hpf Ur Squamous Epith Cells None seen (Few) /hpf Urine Bacteria Rare /hpf Urine Casts 0-2 POC Urine HCG, Qual Negative (Negative) Imaging Data Radiologist's impression: Impressions Head CT 08/07/24 17:42 IMPRESSION: 1. Normal head CT. Discharge Plan Discharge Clinical Impression: Acute hyponatremia Nausea & vomiting Qualifiers: Vomiting type: unspecified Qualified Code(s): R11.2 - Nausea with vomiting, unspecified Patient Disposition: Still a Patient Condition: Stable Instructions: Antibiotic Form Patient Language: Citizen Of [place] Prescriptions: No Action olmesartan 5 mg tablet 5 mg PO DAILY metoprolol succinate 50 mg tablet extended release 24 hr 50 mg PO BID hydrochlorothiazide 12.5 mg capsule 12.5 mg PO DAILY Follow-up/Referrals: Terri,Miguel Clancy MD [Primary Care Provider] - Time of Disposition: 18:36
--- NOTE | 2024-08-07 18:43 | P.HP_ITS ---
H&P: HPI History of Present Illness Date/Time: 08/07/24 18:43 Chief Complaint: nausea, vomiting, dizziness, headache, hypertensive urgency, hyponatremia Narrative: This is a 44 year old female patient who is admitted to the hospital with hyponatremia after recurrent nausea, vomiting, dizziness/motion sickness and new frontal headache. Patient reports a long-standing history of motion sickness, particularly triggered by proximity to water, which has been a consistent trigger since childhood. She uses a scopolamine patch only during travel, typically without issue. In March, she wore the patch for 10 days during vacation and experienced significant withdrawal symptoms (nausea, vomiting, dizziness) for five days after removing it, which was unusual compared to previous experiences. In May, her physician advised halving the patch for future trips to ease withdrawal. On a trip this past weekend, she used half a patch but still developed severe symptoms, including dizziness, nausea, and vomiting, after brief exposure to water on Tuesday. She was ill and mostly bedridden during the trip in [place], with symptoms improving somewhat after returning home on Tuesday night, noting a sensation of her head and eyes not matching up. However, she continued to experience dizziness and headaches, with vomiting having ceased, but dizziness persisting, being minimal on Tuesday but still present on Tuesday morning (today) She also noted episodes of high blood pressure, initially 160/113 when she called her physician. Her physician advised taking Dramamine and calling back; after taking Dramamine, her blood pressure mikal to 180s/120s. Due to persistent symptoms and elevated blood pressure, her physician recommended ED evaluation for a bag of fluids and symptom control. She received antiemetics (Reglan and Benadryl) in the ED, which improved her nausea, but her dizziness and headaches persisted. Blood work revealed significant hyponatremia of 121. She takes hydrochlorothiazide, metoprolol tartrate 50 mg twice daily, and olmesartan 10 mg in the evening for hypertension. Hydrochlorothiazide is noted as a possible contributor to her low sodium. She has a history of high blood pre ssure, managed by Dr. Miguel Murray. She has been on her current regimen for years, except for olmesartan, which was added about a year ago. She denies frequent headaches and reports no current vomiting, only dizziness and headache. 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 Review of Systems Review of Systems: All systems reviewed & are unremarkable except as noted in HPI and below PMFSH Past Medical History Medical History Irregular menses PMDD (premenstrual dysphoric disorder) Menometrorrhagia Encounter for female sterilization procedure Screening mammogram, encounter for History of hypertension Surgical History Surgical History History of right hip replacement (09/30/23) History of gynecological procedure (06/04/21) hscope D&C/ Endometrial ablation/ bilateral Lscope salpingectomy History of gynecological procedure (11/26/10) COLP/BX - SQUAMOUS ATYPIA - SUGG. KOILOCYTOTIC ATYPIA H/O LEEP (12/29/10) LEEP - LGSIL SANTOS 1 History of tonsillectomy Family History Family History Father Hypertension Diabetes mellitus Mother Hypertension H/O ovarian cancer Grandparent H/O ovarian cancer maternal grandmother Cervical cancer maternal grandmother Other Breast cancer paternal aunt Social History Social History Smoking packs per day: 1 Smoking cigarettes per day: 20.0 Years smoked: 15 Smoking pack-years: 15.00 Smoking status: Never smoker Tobacco type: cigarettes Second hand tobacco smoke exposure: No Smoking end date: 04/27/15 Alcohol intake: current Drinks per week: 5 Substance use: never Substance use type: does not use Last use: 2015 Do You Feel Safe in your Home?: Yes Lack of Transportation: No Lack of Food: Never True Current Housing: I Have Housing Concerned About Future Housing: No Difficulty Paying Gas/Electric Bills: No Difficulty Paying for Meds: No Currently Unemployed: No Education: High School Diploma/GED Difficulty w/ Childcare or Family Care: No Living arrangements: other Additional living arrangements comments: spouse Occupation/Education: occupation Additional occupation/education comments: self employed Gender identity (if verbalized by the patient): Female Sexual Orientation (if Verbalized by the Patient): Straight or Heterosexual Spiritual care concerns: No Meds Home Medications and Allergies Home Medications ?Medication ?Instructions ?Recorded ?Confirmed ?Type hydrochlorothiazide 12.5 mg capsule 12.5 mg PO DAILY 04/28/21 08/07/24 History olmesartan 5 mg tablet 10 mg PO HS 07/09/24 08/07/24 History metoprolol tartrate 50 mg tablet 50 mg PO Q12H 08/07/24 08/07/24 History Allergies Allergy/AdvReac Type Severity Reaction Status Date / Time Penicillins Allergy Mild Hives / Verified 07/09/24 13:26 Red Face Vital Signs Vital Signs - 24 hr 08/07/24 15:58 08/07/24 16:02 08/07/24 16:09 Temperature 36.6 C Pulse Rate 86 81 78 Respiratory Rate 13 16 Blood Pressure 205/124 H 205/124 H 218/117 H Pulse Oximetry 100 100 Oxygen Delivery Room Air 08/07/24 16:12 08/07/24 16:12 08/07/24 16:14 Temperature Pulse Rate 72 81 80 Respiratory Rate 13 21 H Blood Pressure 211/120 H 218/117 H 211/120 H Pulse Oximetry 100 100 Oxygen Delivery 08/07/24 16:15 08/07/24 16:17 08/07/24 16:32 Temperature Pulse Rate 81 80 74 Respiratory Rate 17 16 Blood Pressure 216/124 H 216/124 H 183/117 H Pulse Oximetry 100 100 Oxygen Delivery 08/07/24 17:01 08/07/24 18:08 Temperature Pulse Rate 88 71 Respiratory Rate 17 13 Blood Pressure 182/124 H 133/91 H Pulse Oximetry 100 100 Oxygen Delivery Exam Narrative: GENERAL: Well-appearing, well-nourished, and in no acute distress. HEAD: Normocephalic, atraumatic. ENT:? Mucous membranes moist. CHEST: Clear to auscultation.? No respiratory distress. HEART: Regular rate and rhythm. ? Normal peripheral pulses. ABDOMEN: Soft, nontender, nondistended. EXTREMITIES: Normal range of motion. No peripheral edema. SKIN: Warm dry normal color NEURO: Alert and oriented x3. PSYCH: Normal mood and affect H&P: Results Labs Labs: Short CBC 08/07/24 Range/Units 16:05 WBC 7.8 (4.5-10.0) K/mm3 Hgb 14.1 (12.0-15.0) g/dL Hct 39.3 (37.0-47.0) % Plt Count 267 (150-375) k/mm3 BMP 08/07/24 16:05 Sodium 121 L Potassium 4.0 Chloride 87 L Carbon Dioxide 23 BUN 8 Creatinine 0.60 L Glucose 103 Calcium 9.7 Liver Function 08/07/24 Range/Units 16:05 Total Bilirubin 0.8 (0.2-1.3) mg/dL AST 41 H (14-36) U/L ALT 22 (6-35) U/L Alkaline Phosphatase 87 (38-126) U/L Albumin 5.0 (3.5-5.1) g/dL Urine 08/07/24 Range/Units 16:05 Urine Color Yellow (Yellow) Urine Appearance Clear (Clear) Urine pH 7.0 (5.0-9.0) Ur Specific [place] 1.005 (1.001-1.035) Urine Protein Negative (Negative) mg/dL Urine Glucose (UA) Negative (Negative) mg/dL Pulse Oximetry SpO2 results: 97-100% on room air Attestation: I personally reviewed and interpreted this pulse oximetry as follows: Interpretation: No need for supplemental oxygenation at this time Imaging CT scan - head: Radiologist's impression: EXAMINATION: CT brain wo con DATE: 08/07/2024 17:41 INDICATION: Headache TECHNIQUE: Computed tomography (CT) of the head was performed without intravenous contrast. Sagittal and coronal reconstructions were performed. The mA was adjusted according to patient size. Iterative reconstruction technique was employed. The dose-length product was 605.33 mGy-cm. COMPARISON: None FINDINGS: No acute intracranial hemorrhage, acute infarction or abnormal extra axial fluid collection. Ventricles are normal and symmetric. No mass/mass effect. The orbits, paranasal sinuses and mastoid air cells are normal. IMPRESSION: 1. Normal head CT. Reviewed, dictated and finalized at location A. Assessment and Plan Assessment and plan (1) Hypertensive urgency: Code(s): I16.0 - Hypertensive urgency Status: Acute Assessment and Plan: -Severely elevated blood pressure on arrival -History of HTN for years -Metoprolol, HCTZ and olmesartan prescribed at home -BP corrected in ER after Reglan/Benadryl given for nausea/vomiting/headache -Hold HCTZ due to severe hyponatremia -Consider increasing metoprolol or olmesartan dosing if further HTN treatment needed -Third agent to consider rather than HCTZ would be a calcium channel daryl -PRN hydralazine (2) Acute hyponatremia: Code(s): E87.1 - Hypo-osmolality and hyponatremia Status: Acute Assessment and Plan: -Sodium 121 today in ER -Likely related to dehydration from nausea/vomiting, severe dizziness, HCTZ, poor dietary intake r/t vomiting -Normal Saline at 125 mL/hr started in ER -Urine sodium sent from ER, result pending -Regular diet with nausea/vomiting control -Headache reported, no seizures or loss of consciousness -Discussed minimizing free water intake at this time -Discussed trying to manage fear/anxiety about hospital stay to prevent worsening of hyponatremia due to SIADH/adrenaline release -MRI of brain and brain stem ordered to rule out tumor causing symptom worsening and new headache (3) Nausea & vomiting: Qualifiers: Vomiting type: unspecified Qualified Code(s): R11.2 - Nausea with vomiting, unspecified Code(s): R11.2 - Nausea with vomiting, unspecified Status: Acute Assessment and Plan: -See above Quality VTE Prophylaxis VTE prophylaxis: mechanical ordered Hospitalist MIPS Advance Care Plan I have confirmed that the patient's Advanced Care Plan is present, code status is documented, or surrogate decision maker is listed in patient medical record.: Yes Medication Reconciliation I have utilized all available resources to obtain, update and review the patients current medications (includes all prescriptions, OTC, herbals, cannabis, and nutritional supplements).: Yes
[2024-08-07 19:06] LABS: Sodium Urine Random 33 meq/L
--- NOTE | 2024-08-07 19:41 | ADMGEN ---
This patient, Eloina Dumont, was admitted to 2 Medical Room 257-01. Patient/family oriented to hospital policies and general routines including ID bracelet, bed and alarms, visiting hours, pain management, procedures, bathroom and other care routines, personal items, smoking policy, room service/diet, and visiting hours. Information on how to activate the Rapid Response Team has been discussed. Patient/Family are encouraged to report perceived risks to care and to ask questions if they do not understand what they are told or what they should do.
[2024-08-07] MEDS: OLMESARTAN MEDOXOMIL 10 MG TABLET PO (22:56)
[2024-08-07] MEDS: METOPROLOL TARTRATE 50 MG TAB PO (22:56)
[2024-08-08] VITALS: BP 131/85; PULSE 63; RESP 18; TEMP 36.5; O2SAT 99
--- NOTE | 2024-08-08 | ECHO_ITS ---
Patient Info Name: Eloina Dumont Age: 44 years : 1980 Gender: Female Ht: 64 in Wt: 120 lbs BSA: 1.57 m2 HR: 63 bpm BP: 105 / 62 mmHg Heart Rhythm: Sinus Rhythm Technical Quality: Fair Exam Date: 08/08/2024 9:16 AM Patient Status: O Admit Date: 08/07/2024 Exam Type: CA echo doppler w bubble study Complete two-dimensional, color flow and Doppler transthoracic echocardiogram is performed with agitated saline. Staff Referring Physician: Juan Harris Acupressure Therapist: Faye Arce Attending Provider: Gloria Goldstein Contrast/Agitated Saline Contrast/Ag. Saline: Agitated Saline Amount: 16.00 ml Administered By: Patrick Arce MD Summary 1. Left ventricular chamber dimension is normal. 2. Left ventricular systolic function is normal, estimated at 60-65. 3. There is no increased left ventricular wall thickness. 4. The left ventricular diastolic function is normal. 5. Left atrial chamber dimension is mildly enlarged. 6. Intact interatrial septum visualized by color flow and agitated saline imaging. 7. There is mild mitral valve regurgitation. 8. There is mild tricuspid valve regurgitation. 9. There is mild pulmonic regurgitation. Left Ventricle Left ventricular chamber dimension is normal. Left ventricular systolic function is normal, estimated at 60-65. There is no increased left ventricular wall thickness. The left ventricular diastolic function is normal. Right Ventricle Right ventricular chamber dimension is normal. Right ventricular systolic function is normal. Left Atria Left atrial chamber dimension is mildly enlarged. Right Atria Right atrial chamber dimension is normal. Atrial Septum Intact interatrial septum visualized by color flow and agitated saline imaging. Aortic Valve The aortic valve is trileaflet. There is mild aortic valve sclerosis. There is no aortic valve stenosis. There is trace aortic valve regurgitation. Pulmonic Valve The pulmonic valve is normal. There is no pulmonic valve stenosis. There is mild pulmonic regurgitation. Mitral Valve The mitral valve has normal leaflets. There is no mitral valve stenosis. There is mild mitral valve regurgitation. Tricuspid Valve The tricuspid valve leaflets are normal. There is no significant tricuspid valve stenosis. There is mild tricuspid valve regurgitation. No pulmonary hypertension, estimated pulmonary arterial systolic pressure is 25 mmHg. Pericardium/Pleural The pericardium appears normal. There is no pericardial effusion. Inferior Vena Cava Normal inferior vena cava with >50% collapse upon inspiration consistent with normal right atrial pressure, 8 mmHg. Aorta The aortic root size at the sinus of Valsalva is normal. Left Ventricular Outflow Tract Name Value Normal LVOT 2D LVOT Diameter 1.8 cm LVOT Doppler LVOT Peak Velocity 74 cm/s LVOT Peak Gradient 2 mmHg LVOT Mean Gradient 1 mmHg LVOT VTI 17 cm LVOT VTI/AV VTI Ratio 0.7 LVOT Stroke Volume 43 ml LVOT CO 3.0 l/min LVOT CI 1.9 l/min/m2 Pulmonic Valve Name Value Normal PV Doppler PV Peak Velocity 84 cm/s PV Peak Gradient 3 mmHg Mitral Valve Name Value Normal MV Diastolic Function MV E Peak Velocity 84 cm/s MV A Peak Velocity 64 cm/s MV E/A 1.3 MV Decel Time (PW) 226 ms MV Annular TDI MV E/e' (Septal) 7.7 MV E/e' (Lateral) 7.3 MV E/e' (Average) 7.5 Tricuspid Valve Name Value Normal Estimated PAP/RSVP RA Pressure 8 mmHg <=5 PA Systolic Pressure 25 mmHg <36 TV Annular TDI TV Lateral Mery s' Velocity 13.3 cm/s >=9.5 Aortic Valve Name Value Normal AV Doppler AV Peak Velocity 107 cm/s AV Peak Gradient 5 mmHg AV Mean Gradient 3 mmHg AV VTI 23 cm AV Area (Cont Eq VTI) 1.8 cm2 >=3.0 AV Area (Cont Eq Cory) 1.7 cm2 AV DI (Cory) 0.69 AV Regurgitation 2D LVOT Area 2.5 cm2 Ventricles Name Value Normal LV Dimensions 2D/MM IVS Diastolic Thickness (2D) 0.7 cm 0.6-1.0 LVID Diastole (2D) 4.4 cm 3.8-5.2 LVIW Diastolic Thickness (2D) 0.6 cm 0.6-0.9 LVID Systole (2D) 2.9 cm 2.2-3.5 LVOT Diameter 1.8 cm LV Mass (2D Cubed) 78.71 g 67.00-162.00 LV Mass Index (2D Cubed) 50 g/m2 43-95 Relative Wall Thickness (2D) 0.26 <=0.42 LV Fractional Shortening/Ejection Fraction 2D/MM LV Fractional Shortening (2D) 33 % 27-45 LV EF (2D Teichholz) 62 % LV Diastolic Volume (4C MOD) 66 ml LV EF (4C MOD) 59 % LV Diastolic Volume (2C MOD) 66 ml LV EF (2C MOD) 68 % LV Diastolic Volume (BP MOD) 67 ml 46-106 LV Diastolic Volume Index (BP MOD) 43 ml/m2 29-61 LV Systolic Volume (BP MOD) 24 ml 14-42 LV Systolic Volume Index (BP MOD) 16 ml/m2 8-24 LV EF (BP MOD) 63 % 54-74 LV Diastolic Length (4C) 7.0 cm LV Systolic Length (4C) 5.4 cm LV Stroke Volume (4C MOD) 39 ml Atria Name Value Normal LA Dimensions LA Volume (4C A-L) 20 ml LA Volume (BP A-L) 22 ml RA Dimensions RA Systolic [place] Length (4C) 3.3 cm 2.2-2.8 RA Area (4C) 6.2 cm2 <=18.0 Report Signatures
[2024-08-08] MEDS: SODIUM CHLORIDE 0.9% IV 1,000 ML 125 ML IV CONT ×2 (01:14→10:07)
[2024-08-08 01:42] LABS: Total Triiodothyronine (T3) 1.04 NG/ML (0.82-1.58)
[2024-08-08 04:00] VITALS: BP 96/56; PULSE 66; RESP 18; TEMP 36.5; O2SAT 100
[2024-08-08 04:48] LABS: Basophils Percent Auto 0.7 % (0.2-1.2); Eosinophils Percent Auto 0.5 % (0-4.4); Hematocrit 36.7 % (37.0-47.0); Hemoglobin 12.9 g/dL (12.0-15.0); Immature Granulocyte Absolute 0.02 K/mm3 (0.00-0.031); Immature Granulocyte Percent A 0.4 % (0-0.5); Lymphocytes Absolute Auto 2.05 K/mm3 (0.9-3.2); Lymphocytes Percent Auto 36.8 % (18.3-44.2); Mean Corpuscular HGB Conc 35.1 g/dl (32-36); Mean Corpuscular Hemoglobin 32.7 pg (26-34); Mean Corpuscular Volume 93.1 fl (80-100); Mean Platelet Volume 9.2 fl (7.4-10.4); Monocytes Absolute Auto 0.9 K/mm3 (0.1-0.6); Monocytes Percent Auto 16.5 % (2.6-8.5); Neutrophils Absolute Auto 2.5 K/mm3 (1.3-6.7); Neutrophils Percent Auto 45.1 % (45.5-73.1); Platelet Count Result 205 k/mm3 (150-375); Red Blood Count 3.94 M/mm3 (4.2-5.4); Red Cell Distribution Width 10.9 % (11.5-14.5); White Blood Count 5.6 K/mm3 (4.5-10.0)
[2024-08-08 05:21] LABS: Alanine Aminotransferase 17 U/L (6-35); Albumin Level 4.3 g/dL (3.5-5.1); Alkaline Phosphatase 66 U/L (38-126); Anion Gap 9 mmol/L (4-12); Aspartate Amino Transferase 39 U/L (14-36); Bilirubin,Total 0.8 mg/dL (0.2-1.3); Blood Urea Nitrogen 5 mg/dL (7-17); Calcium 9.2 mg/dL (8.4-10.2); Carbon Dioxide 24 mmol/L (22-30); Chloride 98 mmol/L (98-107); Estimated CRCL calculation 88 ml/min; Estimated Glomerular Filt Rate > 60; Glucose 93 mg/dL (65-110); Potassium 3.5 mmol/L (3.4-5.0); Sodium 131 mmol/L (137-145); Total Protein 7.7 g/dL (6.3-8.2)
[2024-08-08 06:00] VITALS: BP 105/62; PULSE 63; RESP 18; TEMP 36.6; O2SAT 100
[2024-08-08 08:00] VITALS: BP 104/66; PULSE 62; RESP 17; TEMP 36.5; O2SAT 100
--- NOTE | 2024-08-08 09:24 | P.PNIM_ITS ---
Progress Note: A&P Assessment and Plan (1) Hypertensive urgency: Code(s): I16.0 - Hypertensive urgency Status: Acute Assessment and Plan: -Severely elevated blood pressure on arrival -History of HTN for years -Metoprolol, HCTZ and olmesartan prescribed at home -BP corrected in ER after Reglan/Benadryl given for nausea/vomiting/headache -Hold HCTZ due to severe hyponatremia -Consider increasing metoprolol or olmesartan dosing if further HTN treatment needed -Third agent to consider rather than HCTZ would be a calcium channel daryl -PRN hydralazine (2) Acute hyponatremia: Code(s): E87.1 - Hypo-osmolality and hyponatremia Status: Acute Assessment and Plan: -Sodium 121 today in ER -->08/08 AM labs: 131 -Likely related to dehydration from nausea/vomiting, severe dizziness, HCTZ, poor dietary intake r/t vomiting -Normal Saline at 125 mL/hr started in ER -Urine sodium sent from ER, results unremarkable -Regular diet with nausea/vomiting control -Headache reported, no seizures or loss of consciousness -Discussed minimizing free water intake at this time -Discussed trying to manage fear/anxiety about hospital stay to prevent worsening of hyponatremia due to SIADH/adrenaline release -MRI of brain and brain stem ordered to rule out tumor causing symptom worsening and new headache -->WDL (3) Nausea & vomiting: Qualifiers: Vomiting type: unspecified Qualified Code(s): R11.2 - Nausea with vomiting, unspecified Code(s): R11.2 - Nausea with vomiting, unspecified Status: Acute Assessment and Plan: -See above Subjective Date/time seen: 08/08/24 Interval history: Per ED provider: Concern for dehydration, vertigo, CBC-no leukocytosis, hemodynamically stable CMP-sodium 121, chloride 87, creatinine 0.60, AST 41 UA-positive for leukocytes, white blood cells 6-10 Urine preg-negative TSH- Elevated, but t4 & t3 WDL. Head CT-normal head CT Based on the lab results started normal saline at 125 an hour treating her with Reglan and Benadryl for her continued symptoms Patient re-evaluated and states that she is feeling a lot better her blood pressure has improved she still is slightly feeling like she will have an episode of the motion sickness but overall feeling better. Per intake hospitalist: This is a 44 year old female patient who is admitted to the hospital with hyponatremia after recurrent nausea, vomiting, dizziness/motion sickness and new frontal headache. Patient reports a long-standing history of motion sickness, particularly triggered by proximity to water, which has been a consistent trigger since childhood. She uses a scopolamine patch only during travel, typically without issue. In March, she wore the patch for 10 days during vacation and experienced significant withdrawal symptoms (nausea, vomiting, dizziness) for five days after removing it, which was unusual compared to previous experiences. In May, her physician advised halving the patch for future trips to ease withdrawal. On a trip this past weekend, she used half a patch but still developed severe symptoms, including dizziness, nausea, and vomiting, after brief exposure to water on Tuesday. She was ill and mostly bedridden during the trip in [place], with symptoms improving somewhat after returning home on Tuesday night, noting a sensation of her head and eyes not matching up. However, she continued to experience dizziness and headaches, with vomiting having ceased, but dizziness persisting, being minimal on Tuesday but still present on Tuesday morning (today) She also noted episodes of high blood pressure, initially 160/113 when she called her physician. Her physician advised taking Dramamine and calling back; after taking Dramamine, her blood pressure mikal to 180s/120s. Due to persistent symptoms and elevated blood pressure, her physician recommended ED evaluation for a bag of fluids and symptom control. She received antiemetics (Reglan and Benadryl) in the ED, which improved her nausea, but her dizziness and headaches persisted. Blood work revealed significant hyponatremia of 121. She takes hydrochlorothiazide, metoprolol tartrate 50 mg twice daily, and olmesartan 10 mg in the evening for hypertension. Hydrochlorothiazide is noted as a possible contributor to her low sodium. She has a history of high blood pressure, managed by Dr. Miguel Murray. She has been on her current regimen for years, except for olmesartan, which was added about a year ago. She denies frequ ent headaches and reports no current vomiting, only dizziness and headache. 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 08/08: Review of Systems Review of Systems: All systems reviewed & are unremarkable except as noted in HPI and below Exam Narrative: GENERAL: Well-appearing, well-nourished, and in no acute distress. HEAD: Normocephalic, atraumatic. ENT:? Mucous membranes moist. CHEST: Clear to auscultation.? No respiratory distress. HEART: Regular rate and rhythm. ? Normal peripheral pulses. ABDOMEN: Soft, nontender, nondistended. EXTREMITIES: Normal range of motion. No peripheral edema. SKIN: Warm dry normal color NEURO: Alert and oriented x3. PSYCH: Normal mood and affect Objective Data Vital Signs Vital Signs: Vital Signs - 24 hr 08/07/24 15:58 08/07/24 16:02 08/07/24 16:09 Temperature 97.8 F Pulse Rate 86 81 78 Respiratory Rate 13 16 Blood Pressure 205/124 H 205/124 H 218/117 H Pulse Oximetry 100 100 Oxygen Delivery Room Air 08/07/24 16:12 08/07/24 16:12 08/07/24 16:14 Temperature Pulse Rate 72 81 80 Respiratory Rate 13 21 H Blood Pressure 211/120 H 218/117 H 211/120 H Pulse Oximetry 100 100 Oxygen Delivery 08/07/24 16:15 08/07/24 16:17 08/07/24 16:32 Temperature Pulse Rate 81 80 74 Respiratory Rate 17 16 Blood Pressure 216/124 H 216/124 H 183/117 H Pulse Oximetry 100 100 Oxygen Delivery 08/07/24 17:01 08/07/24 18:08 08/07/24 22:00 Temperature 98.4 F Pulse Rate 88 71 77 Respiratory Rate 17 13 18 Blood Pressure 182/124 H 133/91 H 138/82 Pulse Oximetry 100 100 100 Oxygen Delivery 08/07/24 22:56 08/08/24 00:00 08/08/24 04:00 Temperature 97.7 F 97.7 F Pulse Rate 77 63 66 Respiratory Rate 18 18 Blood Pressure 131/85 96/56 L Pulse Oximetry 99 100 Oxygen Delivery 08/08/24 06:00 Temperature 97.9 F Pulse Rate 63 Respiratory Rate 18 Blood Pressure 105/62 Pulse Oximetry 100 Oxygen Delivery Meds/Results Medications: Active Medications Generic Name Dose Route Start Last Admin Trade Name Freq PRN Reason Stop Dose Admin Acetaminophen 650 mg 08/07/24 22:27 Acetaminophen 325 Mg Tablet PO Q4H PRN Pain Rated 1-6 Hydralazine HCl 10 mg 08/08/24 00:08 Hydralazine Hcl 20 Mg/Ml Vial IV PUSH Q6H PRN Blood Pressure - High Sodium Chloride 1,000 mls @ 125 mls/hr 08/08/24 01:00 08/08/24 01:14 Normal Saline Iv IV CONT 125 mls/hr .Q8H KENDALL Administration Metoclopramide HCl 10 mg 08/07/24 22:27 Metoclopramide Hcl Inj 10 Mg/2 Ml Vial IV PUSH Q6HR PRN nausea/vomiting Metoprolol Tartrate 50 mg 08/07/24 22:30 08/07/24 22:56 Metoprolol Tartrate 50 Mg Tab PO 50 mg Q12HR KENDALL Administration Morphine Sulfate 4 mg 08/07/24 22:27 Morphine Sulfate (*Crx) 4 Mg/Ml Inj IV PUSH Q4H PRN Pain Rated 7-10 Olmesartan 10 mg 08/07/24 22:30 08/07/24 22:56 Olmesartan Medoxomil 10 Mg Tablet PO 10 mg HS KENDALL Administration Perflutren Lipid Microsphere 0 ml 08/08/24 00:09 Perflutren Lipid Microspheres 1.5 Ml Vial Diluted To 10 Ml Total Volume IV PUSH 08/11/24 00:09 ONCE PRN adequate visualization Protocol Radiology Results: ITS Impressions Head CT 08/07/24 17:42 IMPRESSION: 1. Normal head CT. Brain MRI 08/08/24 09:18 IMPRESSION: 1. Normal brain MR. Labs Labs: Laboratory Results - last 24 hr 08/07/24 08/07/24 08/07/24 16:05 16:08 17:54 WBC 7.8 RBC 4.25 Hgb 14.1 Hct 39.3 MCV 92.5 MCH 33.2 MCHC 35.9 RDW 11.2 L Plt Count 267 MPV 9.2 Immature Gran % (Auto) 0.4 Neut % (Auto) 56.4 Lymph % (Auto) 25.9 [place] % (Auto) 16.7 H Eos % (Auto) 0.1 Baso % (Auto) 0.5 Lymph # (Auto) 2.01 [place] # (Auto) 1.3 H Eos # (Auto) 0.0 Baso # (Auto) 0.0 Abs Immat Gran (auto) 0.03 Absolute Neuts (auto) 4.4 Absolute Nucleated RBC 0.000 Nucleated RBC % 0.0 Sodium 121 L Potassium 4.0 Chloride 87 L Carbon Dioxide 23 Anion Gap 11 BUN 8 Creatinine 0.60 L Estim Creat Clear Calc 88 Estimated GFR > 60 Glucose 103 Calcium 9.7 Magnesium Total Bilirubin 0.8 AST 41 H ALT 22 Alkaline Phosphatase 87 Total Protein 8.9 H Albumin 5.0 Lipase 150 TSH (Reflex) 3.860 Free T4 Total T3 Urine Color Yellow Urine Appearance Clear Urine pH 7.0 Ur Specific [place] 1.005 Urine Protein Negative Urine Glucose (UA) Negative Urine Ketones Negative Ur Blood (Man) Negative Urine Nitrate Negative Urine Bilirubin Negative Urine Urobilinogen 0.2 Leukocyte Esterase Rfl 1+ H Urine RBC 0-2 Urine WBC 6-10 H Ur Squamous Epith Cells None seen Urine Bacteria Rare Urine Casts 0-2 Ur Random Sodium 33 POC Urine HCG, Qual Negative 08/07/24 08/08/24 23:12 04:39 WBC 5.6 RBC 3.94 L Hgb 12.9 Hct 36.7 L MCV 93.1 MCH 32.7 MCHC 35.1 RDW 10.9 L Plt Count 205 MPV 9.2 Immature Gran % (Auto) 0.4 Neut % (Auto) 45.1 L Lymph % (Auto) 36.8 [place] % (Auto) 16.5 H Eos % (Auto) 0.5 Baso % (Auto) 0.7 Lymph # (Auto) 2.05 [place] # (Auto) 0.9 H Eos # (Auto) 0.0 Baso # (Auto) 0.0 Abs Immat Gran (auto) 0.02 Absolute Neuts (auto) 2.5 Absolute Nucleated RBC 0.000 Nucleated RBC % 0.0 Sodium 131 L Potassium 3.5 Chloride 98 Carbon Dioxide 24 Anion Gap 9 BUN 5 L Creatinine 0.61 L Estim Creat Clear Calc 88 Estimated GFR > 60 Glucose 93 Calcium 9.2 Magnesium 2.0 Total Bilirubin 0.8 AST 39 H ALT 17 Alkaline Phosphatase 66 Total Protein 7.7 Albumin 4.3 Lipase TSH (Reflex) 8.340 H Free T4 1.60 Total T3 1.04 Urine Color Urine Appearance Urine pH Ur Specific [place] Urine Protein Urine Glucose (UA) Urine Ketones Ur Blood (Man) Urine Nitrate Urine Bilirubin Urine Urobilinogen Leukocyte Esterase Rfl Urine RBC Urine WBC Ur Squamous Epith Cells Urine Bacteria Urine Casts Ur Random Sodium POC Urine HCG, Qual Quality VTE Prophylaxis VTE prophylaxis: mechanical ordered
[2024-08-08 10:07] VITALS: PULSE 62
[2024-08-08] MEDS: METOPROLOL TARTRATE 50 MG TAB PO (10:07)
--- NOTE | 2024-08-08 11:42 | PM.DS ---
DS: Admitting Diagnosis Discharge Date 08/08/2024 Admitting Diagnosis Hyponatremia DS: Discharge Diagnosis Discharge Diagnosis (1) Hypertensive urgency: Code(s): I16.0 - Hypertensive urgency Status: Acute Assessment and Plan: -Severely elevated blood pressure on arrival to ED, has since normalized -History of HTN for years -Metoprolol, HCTZ, and olmesartan prescribed at home -BP corrected in ER after Reglan/Benadryl given for nausea/vomiting/headache -Hold HCTZ due to severe hyponatremia -Consider increasing metoprolol or olmesartan dosing if further HTN treatment needed -->D/C today with plan to f/u with PCP to evaluate need for third agent. Pt advised to keep home log of BP measurements. -Third agent to consider rather than HCTZ would be a calcium channel daryl -PRN hydralazine -ECHO: Unremarkable (2) Acute hyponatremia: Code(s): E87.1 - Hypo-osmolality and hyponatremia Status: Acute Assessment and Plan: -Sodium 121 today in ER -->6 AM labs: 131 -Likely related to dehydration from nausea/vomiting, severe dizziness, HCTZ, poor dietary intake r/t vomiting -->Continue to hold HCTZ, pt states she feels back to nml and is tolerating liquids (she states that she does not eat during the day, I encouraged her to order lunch before she leaves) -Normal Saline at 125 mL/hr started in ER, D/C upon discharge -Urine sodium sent from ER, results unremarkable -Regular diet with nausea/vomiting control -Headache reported in ED, no seizures or loss of consciousness - pt denying SALCEDO, nasuea, dizziness, or any other sx today -MRI of brain and brain stem ordered to rule out tumor causing symptom worsening and new headache -->WDL (3) Nausea & vomiting: Qualifiers: Vomiting type: unspecified Qualified Code(s): R11.2 - Nausea with vomiting, unspecified Code(s): R11.2 - Nausea with vomiting, unspecified Status: Acute Assessment and Plan: -See above -Denies any sx as of today Plan Pt discharge today due to back to baseline, including labs. Pt to f/u with PCP for elevated TSH (t3 & t4 WDL) as well as HTN medication/readings. DS: Summary Hospital Course Reason for hospitalization: Hyponatremia Hospital Course: This is a 44 year old female patient who is admitted to the hospital with hyponatremia after recurrent nausea, vomiting, dizziness/motion sickness and new frontal headache. Patient reports a long-standing history of motion sickness, particularly triggered by proximity to water, which has been a consistent trigger since childhood. She uses a scopolamine patch only during travel, typically without issue. In March, she wore the patch for 10 days during vacation and experienced significant withdrawal symptoms (nausea, vomiting, dizziness) for five days after removing it, which was unusual compared to previous experiences. In May, her physician advised halving the patch for future trips to ease withdrawal. On a trip this past weekend, she used half a patch but still developed severe symptoms, including dizziness, nausea, and vomiting, after brief exposure to water on Tuesday. She was ill and mostly bedridden during the trip in [place], with symptoms improving somewhat after returning home on Tuesday night, noting a sensation of her head and eyes not matching up. However, she continued to experience dizziness and headaches, with vomiting having ceased, but dizziness persisting, being minimal on Tuesday but still present on Tuesday morning (today) She also noted episodes of high blood pressure, initially 160/113 when she called her physician. Her physician advised taking Dramamine and calling back; after taking Dramamine, her blood pressure mikal to 180s/120s. Due to persistent symptoms and elevated blood pressure, her physician recommended ED evaluation for a bag of fluids and symptom control. She received antiemetics (Reglan and Benadryl) in the ED, which improved her nausea, but her dizziness and headaches persisted. Blood work revealed significant hyponatremia of 121. She takes hydrochlorothiazide, metoprolol tartrate 50 mg twice daily, and olmesartan 10 mg in the evening for hypertension. Hydrochlorothiazide is noted as a possible contributor to her low sodium. She has a history of high blood pressure, managed by Dr. Miguel Murray. She has been on her current regimen for years, except for olmesartan, which was added about a year ago. She denies frequent headaches and reports no current vomiting, only dizziness and headache. 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 08/08: Pt feeling back to baseline today, denying SALCEDO, nausea, dizziness, or any other sx. Pt sodium coming back into baseline range. BP pressures also have been stable on home metop 50mg BID and olmesartan 10mg daily. Continue to hold HCTZ d/t low sodium. Plan to f/u with PCP regarding BP control. TSH was also drawn twice while inpt, once being elevated, T3 and T4. Pt states that she has a hx of Grave's disease but has not had to be medically managed for this since she was 20 y/o; denies any sx today. Status at Discharge Cognitive/behavioral status at discharge: Stable Functional status at discharge: independent ambulation Overall status at discharge: patient is back to baseline Time Spent with Patient Time attestation: Total time spent providing and/or coordinating discharge services: Exam Const: General: comfortable and no acute distress HENMT: Face/Nose/Sinus: Normal nares present Mouth: Yes moist mucous membranes Eyes: General: appearance normal, both eyes and all related structures Sclera: sclerae normal Neck: Neck: supple and no JVD Resp: Effort & Inspection: normal respiratory effort Auscultation: clear to auscultation bilaterally Cardio: Rate: regular rate Rhythm: regular rhythm GI: Inspection: non-distended GI Palp: Yes Soft to palpation and No Tenderness to palpation present (GI) Auscultation: normal bowel sounds Skin: General skin exam: normal color and no rashes or lesions noted Wounds: no wounds Neuro: Motor exam (neuro): 5/5 motor strength present throughout and Normal motor muscle tone present throughout Sensory Exam: normal sensation Extrem: General: normal to inspection, no edema and no pedal edema Psych: Mental Status: mental status grossly normal Affect: normal affect DS: Data Data Completed and Pending Labs on day of discharge: Labs from last 24 hours 08/08/24 08/07/24 08/07/24 04:39 23:12 17:54 WBC 5.6 RBC 3.94 L Hgb 12.9 Hct 36.7 L MCV 93.1 MCH 32.7 MCHC 35.1 RDW 10.9 L Plt Count 205 MPV 9.2 Immature Gran % (Auto) 0.4 Neut % (Auto) 45.1 L Lymph % (Auto) 36.8 [place] % (Auto) 16.5 H Eos % (Auto) 0.5 Baso % (Auto) 0.7 Lymph # (Auto) 2.05 [place] # (Auto) 0.9 H Eos # (Auto) 0.0 Baso # (Auto) 0.0 Abs Immat Gran (auto) 0.02 Absolute Neuts (auto) 2.5 Absolute Nucleated RBC 0.000 Nucleated RBC % 0.0 Sodium 131 L Potassium 3.5 Chloride 98 Carbon Dioxide 24 Anion Gap 9 BUN 5 L Creatinine 0.61 L Estim Creat Clear Calc 88 Estimated GFR > 60 Glucose 93 Calcium 9.2 Magnesium 2.0 Total Bilirubin 0.8 AST 39 H ALT 17 Alkaline Phosphatase 66 Total Protein 7.7 Albumin 4.3 Lipase TSH (Reflex) 8.340 H 3.860 Free T4 1.60 Total T3 1.04 Urine Color Urine Appearance Urine pH Ur Specific [place] Urine Protein Urine Glucose (UA) Urine Ketones Ur Blood (Man) Urine Nitrate Urine Bilirubin Urine Urobilinogen Leukocyte Esterase Rfl Urine RBC Urine WBC Ur Squamous Epith Cells Urine Bacteria Urine Casts Ur Random Sodium POC Urine HCG, Qual 08/07/24 08/07/24 16:08 16:05 WBC 7.8 RBC 4.25 Hgb 14.1 Hct 39.3 MCV 92.5 MCH 33.2 MCHC 35.9 RDW 11.2 L Plt Count 267 MPV 9.2 Immature Gran % (Auto) 0.4 Neut % (Auto) 56.4 Lymph % (Auto) 25.9 [place] % (Auto) 16.7 H Eos % (Auto) 0.1 Baso % (Auto) 0.5 Lymph # (Auto) 2.01 [place] # (Auto) 1.3 H Eos # (Auto) 0.0 Baso # (Auto) 0.0 Abs Immat Gran (auto) 0.03 Absolute Neuts (auto) 4.4 Absolute Nucleated RBC 0.000 Nucleated RBC % 0.0 Sodium 121 L Potassium 4.0 Chloride 87 L Carbon Dioxide 23 Anion Gap 11 BUN 8 Creatinine 0.60 L Estim Creat Clear Calc 88 Estimated GFR > 60 Glucose 103 Calcium 9.7 Magnesium Total Bilirubin 0.8 AST 41 H ALT 22 Alkaline Phosphatase 87 Total Protein 8.9 H Albumin 5.0 Lipase 150 TSH (Reflex) Free T4 Total T3 Urine Color Yellow Urine Appearance Clear Urine pH 7.0 Ur Specific [place] 1.005 Urine Protein Negative Urine Glucose (UA) Negative Urine Ketones Negative Ur Blood (Man) Negative Urine Nitrate Negative Urine Bilirubin Negative Urine Urobilinogen 0.2 Leukocyte Esterase Rfl 1+ H Urine RBC 0-2 Urine WBC 6-10 H Ur Squamous Epith Cells None seen Urine Bacteria Rare Urine Casts 0-2 Ur Random Sodium 33 POC Urine HCG, Qual Negative Discharge Plan Discharge Attending physician on discharge: Gloria Goldstein Discharging Clinician: Gloria Goldstein Anticipated Discharge Date/Time: 08/08/24 13:00 Patient Disposition: Home Activity: may shower and as tolerated Diet: regular Discharge Instructions: Continue to check your blood pressure and blood sugar at home if applicable. Keep your scheduled appts with your primary care provider and any specialist that you may see. Return to the emergency department if you develop sudden shortness of breath, chest pain, a fever of greater than 101.5, or nausea, vomiting, abd pain, or diarrhea that does not go away. Follow-up with your primary care provider within 1-2 weeks, they will want to be updated on your inpatient stay in the hospital. Thank you for choosing [facility] for your healthcare needs. Patient Instructions: Hyponatremia (GEN), Chronic Hypertension (GEN) Patient Language: Polish Stand Alone Forms: General Discharge Information Follow-up/Referrals: Gustavo,Miguel Clancy MD [Primary Care Provider] - 2 Weeks Discharge Medications: Continued olmesartan 5 mg tablet 10 mg PO HS metoprolol tartrate 50 mg tablet 50 mg PO Q12H Held hydrochlorothiazide 12.5 mg capsule 12.5 mg PO DAILY Hold Instructions: Resume on 09/28/24. Hold until primary care provider says otherwise Date of admission: 08/07/24 18:34 Primary Care Provider: GustavoMiguel Admitting Provider: Gabby Oconnor Attending physician on admission: Gloria Goldstein Condition: Stable Quality VTE Prophylaxis VTE prophylaxis: mechanical ordered Hospitalist MIPS Heart Failure (Exclusion) Patient has history of Heart Transplant or Left Ventricular Assistive Device?: No IF YES, STOP HERE Heart Failure (Qualifier) Patient has current or prior documentation of LVEF less than or equal to 40%, or mod/servere depressed LVSF?: No IF NO, STOP HERE
== END 2024-08-08 12:45 | disposition home or self-care (01) ==
LOC: ANHED 18:18 → ANH2MED 08-08 07:15
PROVIDERS: Nurse Practitioner; Admitting Provider Internal Medicine; Emergency Provider Nurse Practitioner Family; PCP Family Medicine
DX: I16.0 Hypertensive urgency (principal); I10 Essential (primary) hypertension; E87.1 Hypo-osmolality and hyponatremia; R11.2 Nausea with vomiting, unspecified; Z96.641 Presence of right artificial hip joint; Z98.890 Other specified postprocedural states
CPT/HCPCS: 36415; 70450; 70553; 80053; 81001; 81025; 83690; 83735; 84300; 84439; 84443; 84480; 85025; 87077; 87086; 87186; 93306; 96361; 96374; 96375; 96376; 99285; A9270; A9579; G0378; J1200; J2765; J7030

== ENCOUNTER 2024-08-20 14:43 | Outpatient (CLI) | payer BC, SELFPAY ==
--- NOTE | ~2024-08-20 | MM_ITS ---
EXAMINATION: MM screening mike BI w kortney HISTORY: Screening mammogram TECHNIQUE: Craniocaudal and mediolateral oblique 3-D tomosynthesis images were obtained and synthetic 2-D images were generated. CAD analysis was submitted and interpreted. COMPARISON: 08/19/2023, 07/21/2022 BREAST PARENCHYMAL COMPOSITION:Dense: The breasts are extremely dense, which lowers the sensitivity o f mammography. FINDINGS: No suspicious mass, calcification, or architectural distortion are identified in either darrell ast to suggest malignancy. There has been no suspicious interval change. IMPRESSION: No mammographic evidence of malignancy. Recommend routine screening mammography in one year. BI-RADS Category 1: Negative Reviewed, dictated and finalized at location M.
== END 2024-08-20 14:44 | disposition home or self-care (01) ==
LOC: MICIMG 14:43
PROVIDERS: PCP Family Medicine; Visit Provider Obstetrics & Gynecology
DX: Z12.31 Encounter for screening mammogram for malignant neoplasm of breast (principal)
CPT/HCPCS: 77063; 77067

== ENCOUNTER 2024-09-12 11:29 | Outpatient (CLI) | payer BC, SELFPAY ==
--- NOTE | ~2024-09-12 | US_ITS ---
EXAMINATION: US retroperitoneal duplex ltd DATE: 09/14/2024 06:48 CDT INDICATION: Accelerated hypertension. TECHNIQUE: Sonographic imaging of the kidneys was performed with a 3.5 MHz transducer. Retroperitone al duplex sonogram of the renal arteries also obtained. FINDINGS: No focal flow abnormalities are seen in the renal arteries on color Doppler. The peak syst olic velocity ranges of the right and left renal arteries and aorta are 42 cm per second, 35 cm per s econd, and 62 cm per second, respectively. The velocities and renal to aortic ratios are within donato l limits. Renal echotexture is unremarkable bilaterally. Right kidney measures 9.9 cm. Left kidney me asures 12.3 cm. IMPRESSION: 1. No Doppler evidence of renal artery stenosis. Reviewed, dictated and finalized at location B.
== END 2024-09-12 11:30 | disposition home or self-care (01) ==
PROVIDERS: PCP Family Medicine; Visit Provider Internal Medicine
DX: I10 Essential (primary) hypertension (principal)
CPT/HCPCS: 93976